=== PATIENT | female | born 1980 | race Caucasian/White ===

== ENCOUNTER 2017-06-04 11:48 | Inpatient (IN) | payer OTHER ==
--- NOTE | 2017-06-04 12:13 | CPEKG ---
Heart Rate: 115 RR Interval: 522 P-R Interval: 164 QRSD Interval: 94 QT Interval: 304 QTC Interval: 421 P [place]: 68 QRS [place]: -23 T Wave [place]: 129 EKG Severity - ABNORMAL ECG - EKG Impression: SINUS TACHYCARDIA EKG Impression: PROBABLE LVH WITH SECONDARY REPOL ABNRM Electronically Signed By: Padmini Hollis 04-Jun-2017 15:22:52
[2017-06-04 12:42] LABS: PLATELET COUNT 219 10^3/uL (150-400)
[2017-06-04] MEDS ORDERED: IOPAMIDOL (ISOVUE 370) 100 ML BTL IV ONE (12:56)
--- NOTE | 2017-06-04 13:07 | EDPHY ---
H & P Time Seen by Provider: 06/04/17 12:03 HPI/ROS: CHIEF COMPLAINT: Chest pain, shortness of breath HISTORY OF PRESENT ILLNESS: 37-year-old female with a history of antiphospholipid syndrome and prior pulmonary embolism presents with chest pain and shortness of breath. Just prior to arrival, she was in a meeting, when she developed sudden onset of central chest pain and dizziness. Associated with increasing shortness of breath. She has been short of breath for 4-6 weeks, thought secondary to severe anemia. Since she has been on anticoagulation, she has had fairly constant vaginal bleeding, which has led to severe anemia. She received an iron infusion yesterday. This month, the vaginal bleeding has been more severe than usual and continues today. She was seen at [facility] 1 week ago and placed on Provera. She has been on Eliquis for 6 weeks. Prior to this, she was on Coumadin, but she was switched over to Eliquis to see if Eliquis would cause less vaginal bleeding. REVIEW OF SYSTEMS: Constitutional: No fever, no chills Eyes: No visual changes ENT: No sore throat Gastrointestinal: No nausea, no vomiting, no abdominal pain Genitourinary: no dysuria Musculoskeletal: Bilateral leg swelling Skin: No rash Neurological: No headache, no numbness, no weakness Psychiatric: Feels anxious Past Medical/Surgical History: Antiphospholipid syndrome Pulmonary embolism Severe anemia Social History: Live In Housekeeper Nanny: Dr. Briana Casanova Smoking Status: Never smoked Physical Exam: General Appearance: Alert, pleasant Eyes: Pupils equal and round, conjunctival pallor ENT, Mouth: Mucous membranes moist Neck: Normal inspection Respiratory: Lungs are clear to auscultation Cardiovascular: Regular tachycardia Gastrointestinal: Abdomen is soft and nontender Neurological: A&O, nonfocal exam Skin: Warm and dry, no rash Extremities: Bilateral pedal edema Psychiatric: Mood and affect normal Constitutional: Initial Vital Signs Temperature (C) 36.7 C 06/04/17 11:52 Heart Rate 127 H 06/04/17 11:52 Respiratory Rate 28 H 06/04/17 11:52 Blood Pressure 201/119 H 06/04/17 11:52 O2 Sat (%) 91 L 06/04/17 11:52 O2 Delivery Mode Room Air Allergies/Adverse Reactions: No Known Allergies Allergy (Unverified 06/04/17 11:51) Home Medications: Medication Instructions Recorded Acetaminophen [Tylenol ES 500 mg 500 mg PO DAILY PRN 06/04/17 (*)] Albuterol [Proventil Inhaler HFA 1 - 2 puffs IH DAILY PRN 06/04/17 (*)] Apixaban [Eliquis] 5 mg PO BID 06/04/17 Levothyroxine [Synthroid 137 mcg 274 mcg PO DAILY06 06/04/17 (*)] Norgestimate-Ethinyl Estradiol 1 each PO DAILY 06/04/17 [Tri-Sprintec Tablet] Medical Decision Making - Diagnostics EKG Interpretation: EKG interpreted by me reveals sinus tachycardia, rate 115, nonspecific T-wave changes. Impression: Borderline EKG Imaging Results: CT pulmonary angiogram reveals no evidence of pulmonary embolism. Imaging: Discussed imaging studies w/ banquet server on call Radiologist, I viewed and interpreted images myself ED Course/Re-evaluation: This patient presents with chest pain and shortness of breath, concerning for acute pulmonary embolism, especially given tachycardia. CT pulmonary angiogram ordered. The CT pulmonary angiogram is normal, read by the radiologist. However, the patient has severe anemia, with hemoglobin of 8, and ongoing vaginal bleeding. I reviewed her past hemoglobins and she has never been this low. This is most likely the reason for the ongoing shortness of breath and tachycardia. I discussed the possibility of blood transfusion with the patient and her . No prior blood transfusion. She would like me to call Dr. Doe, her matrix supervisor. I spoke with the on-call physician for Dr. Doe, who agrees with blood transfusion. Risks and benefits of blood transfusion discussed with the patient. She agrees to transfusion. 1 U of packed red blood cells ordered. The hospitalist service was consulted for admission. Given ongoing chest pain, a troponin was ordered. EKG reveals no evidence of ischemia, though given the ongoing chest pain, serial troponins are indicated. Differential Diagnosis: Differential diagnosis includes though it is not limited to pneumonia, pneumothorax, pulmonary embolism, aortic dissection, pericarditis, acute coronary syndrome. - Data Points Laboratory Results: Laboratory Results 06/04/17 12:30 06/04/17 12:30 06/04/17 14:07 Patient ABO/Rh A POSITIVE Antibody Screen NEGATIVE Crossmatch IS Only See Detail Medications Given: Acetaminophen (Tylenol) 650 mg PO Q4HRS PRN PRN Reason: Pain, Mild/Fever, Can Take PO Stop: 07/03/18 16:48 Last Admin: 06/05/17 09:29 Dose: 650 mg Apixaban (Eliquis) 5 mg PO BID [facility] Stop: 12/01/17 20:59 Last Admin: 06/05/17 08:02 Dose: 5 mg Levothyroxine Sodium (Synthroid) 274 mcg PO DAILY06 [facility] Stop: 12/02/17 05:59 Last Admin: 06/05/17 08:02 Dose: 274 mcg Discontinued Medications Acetaminophen (Tylenol) 500 mg PO EDNOW ONE Stop: 06/04/17 16:17 Last Admin: 06/04/17 16:23 Dose: 500 mg Departure - Departure Disposition: [facility] Acute Clinical Impression: Severe anemia Chest pain Qualifiers: Chest pain type: precordial pain Qualified Code(s): R07.2 - Precordial pain Condition: Good
[2017-06-04] MEDS ORDERED: ACETAMINOPHEN 500 MG TAB PO ONE (16:16)
[2017-06-04] MEDS ORDERED: ACETAMINOPHEN 500 MG TAB PO PRN (16:48)
[2017-06-04] MEDS ORDERED: ONDANSETRON DISINTEGRATING 4 MG TAB PO PRN (16:49)
[2017-06-04] MEDS ORDERED: ONDANSETRON 4 MG/2 ML VIAL IVP PRN (16:49)
--- NOTE | 2017-06-04 17:54 | GHP ---
[f rep st] HISTORY AND PHYSICAL DATE OF ADMISSION: 06/04/2017 CHIEF COMPLAINT: Dizziness, menorrhagia. HISTORY OF PRESENT ILLNESS: This is a 37-year-old female with a history of pulmonary embolism a coup le years ago and diagnosed with antiphospholipid syndrome. She has been on Coumadin, and was recentl y switched over to Eliquis. For about a year she has been having menorrhagia due to her anticoagulat ion. She has been seeing Gynecology, and last month started on oral contraceptives. During the 3 we eks of active pills, she had decreased bleeding over normal; however, when she began the placebo, her bleeding began to decrease which was more brisk than usual. She was seen in the emergency departmen t about a week ago and was given Provera. She however continues with significant amounts of menorrha kinga. Today she has been feeling more short of breath with some lightheadedness and with some chest p ain/chest pressure. She is used to the shortness of breath, but the dizziness and chest pressure are new for her. Her hemoglobin has never been as low as 8. A couple weeks ago it was 12. The lowest it has been about 10. She does see Dr. Doe of [facility] and has been getting IV iron infusions; the last 1 was yesterday. REVIEW OF SYSTEMS: A 10-point review of systems was obtained, and other than stated, was negative. PAST MEDICAL HISTORY: 1. Antiphospholipid syndrome with pulmonary embolism. 2. Obstructive sleep apnea. 3. Asthma. 4. Hypothyroidism. MEDICATIONS: Reviewed. SOCIAL HISTORY: She is . No smoking or alcohol. FAMILY HISTORY: No history of blood clots. PHYSICAL EXAMINATION: VITAL SIGNS: Afebrile. Blood pressure is 146/105, heart rate 108, oxygen sat uration 96% in room air. GENERAL: The patient is well developed and in no apparent distress. HEENT: Anicteric sclerae. Extraocular movements intact. Moist mucous membranes. Pale conjunctivae. NEC K: Supple. No thyromegaly. LUNGS: Good effort. Clear to auscultation bilaterally. CARDIOVASCULA R: Regular rate and rhythm. No murmurs, rubs, or gallops. ABDOMEN: Positive bowel sounds. Soft, nontender, nondistended. No hepatosplenomegaly. EXTREMITIES: No clubbing, cyanosis, or edema. SKI N: Without rash. All intact. NEURO: Alert and oriented x3. Moving all 4 extremities equally. PS YCH: Normal mood and affect. LABORATORY DATA: White count 11, hemoglobin 11. Chemistry is normal. Troponin is 0.032. ASSESSMENT: A 37-year-old female, presenting with symptomatic anemia. 1. Symptomatic anemia. Hemoglobin is 8 and I suspect that she has had a 4 g drop in the last couple days. She does not appear to be tolerating this well, with some tachycardia, chest pain, and lighth eadedness. Therefore, will give her a transfusion. I am going to give her 2 units due to her contin ued bleeding and trying to build a little bit of reserve for her until the bleeding stops. 2. Menorrhagia. Will continue her oral contraceptives. 3. Obstructive sleep apnea. Continue CPAP. 4. History of pulmonary embolism. We will continue the Eliquis for now. 5. /[id number]/MODL
[2017-06-04] MEDS: ACETAMINOPHEN 325 MG TAB PO PRN (18:41)
[2017-06-04] MEDS: APIXABAN 5 MG TAB PO SCH (21:13)
[2017-06-05 05:10] LABS: PLATELET COUNT 179 10^3/uL (150-400)
[2017-06-05] MEDS: LEVOTHYROXINE 137 MCG TAB PO SCH (08:02)
[2017-06-05] MEDS: APIXABAN 5 MG TAB PO SCH ×2 (08:02→20:12)
[2017-06-05] MEDS: ACETAMINOPHEN 325 MG TAB PO PRN (09:29)
[2017-06-05] MEDS: Norgestimate-Ethinyl Estradiol [Tri-Sprintec Tablet] PO SCH (10:14)
[2017-06-05] MEDS ORDERED: DIAZEPAM 10 MG/2 ML SYR IVP PRN (10:47)
[2017-06-05] MEDS ORDERED: DIAZEPAM 5 MG TAB PO ONE (11:30)
--- NOTE | 2017-06-05 15:38 | HOSPPROG ---
Hospitalist Progress Note Assessment/Plan: 37y female with cp and bleeding. First encounter, chart reviewed. #Menorrhagia conts pt on control discussed IUD, waiting insurance coverage conts to bleed check labs in am #ABLA 2 unit PRBC given appears stable #CP bumped trop resolving no further complaints #Antiphospholipid syndrome cont eliquis #Severe back pain CT shows djd no acute process responded to valium likely spasm #Morbid obesity chronic #Hx PE on anticoagulation Dispo change to inpt status pt needs cont monitoring in hospital given cont bleeding recheck labs in am if stable likely DC home Subjective: C/O severe back pain. Still bleeding. Eager to go home. Objective: Vital Signs Temp Pulse Resp BP Pulse Ox 36.9 C 78 24 H 160/90 H 95 06/05/17 10:35 06/05/17 10:35 06/05/17 10:35 06/05/17 10:35 06/05/17 10:35 Laboratory Results 06/05/17 07:04 06/04/17 06/05/17 06/06/17 05:59 05:59 05:59 Intake Total 1800 Balance 1800 - Physical Exam Constitutional: appears nourished, obese, uncomfortable Eyes: PERRL, anicteric sclera, EOMI Ears, Nose, Mouth, Throat: moist mucous membranes, hearing normal, ears appear normal Cardiovascular: regular rate and rhythym, No JVD, No edema Respiratory: no respiratory distress, no rales or rhonchi, reduced air movement Gastrointestinal: normoactive bowel sounds, No tenderness, No ascites Skin: warm, normal color, No erythema Musculoskeletal: full muscle strength, normal joint ROM, no joint effusions Neurologic: AAOx3 Psychiatric: interacting appropriately, not anxious, not encephalopathic, poor judgement ICD10 Worksheet Patient Problems: Problems Problem Status Onset Chest pain Acute Severe anemia Acute
--- NOTE | 2017-06-05 16:06 | PDMN ---
Medical Necessity Medical necessity: Pt meets INPT criteria per [employer]/MD as of 06/05/17 and MCG M-35 Anemia, Iron Deficiency or Unspecified (ABLA req. 2 units pPRBC with ongoing menorrhagia, antiphospholipid syndrome on eliquis, chest pain, severe back pain ; hx PE).
--- NOTE | 2017-06-05 16:48 | ASMTCMCOM ---
CM Note CM Note Notes: Patient admitted for severe anemia secondary to menorrhagia. She had a blood transfusion today and will have labs checked again in the AM. Patient lives independently with , and I anticipate she will go home with him tomorrow. CM available if needs arise. Date Signed: 06/05/2017 04:47 PM Electronically Signed By:Cassie Fatima RN
[2017-06-06] MEDS: ACETAMINOPHEN 325 MG TAB PO PRN (00:14)
[2017-06-06 03:46] VITALS: O2SAT 93
[2017-06-06 07:08] VITALS: RESP 18
[2017-06-06] MEDS: APIXABAN 5 MG TAB PO SCH (08:08)
[2017-06-06] MEDS: LEVOTHYROXINE 137 MCG TAB PO SCH (08:08)
[2017-06-06] MEDS: Norgestimate-Ethinyl Estradiol [Tri-Sprintec Tablet] PO SCH (08:32)
[2017-06-06 16:03] VITALS: BP 146/58; PULSE 81; TEMP 98.3
--- NOTE | 2017-06-06 21:09 | GDS ---
[f rep st] DISCHARGE SUMMARY NEW AND ACUTE DIAGNOSES: 1. Menorrhagia with significant blood loss resulting in 2 units packed red blood cells. 2. Acute blood loss anemia, status post 2 units packed red blood cells. 3. Chest pain with an elevated troponin, felt to be noncardiac and resolving. 4. Antiphospholipid syndrome requiring long-term anticoagulation. 5. Severe back pain; possibly spasm and referred pain. 6. Morbid obesity. CHRONIC DIAGNOSES: A history of pulmonary emboli, on chronic anticoagulation. CONSULTATIONS: None. PROCEDURES: 1. CTA of the chest showed no evidence of pulmonary thromboembolic disease. Lungs were clear. Hepa tic steatosis noted. 2. Lumbar spine CT showing mild early degenerative disk and degenerative joint disease at L4-5 and L 5-S1. HOSPITAL COURSE: A 37-year-old female with a known antiphospholipid syndrome, for which she is on lo ng-term anticoagulation, presents with increased menorrhagia. She has constant small degree of catia rhagia, for which she is on control pills. Her bleeding had become more severe. She was given a dose of Provera, but the bleeding did not resolve. She presented with menorrhagia and a hemoglobi n of 8.1, with a baseline hemoglobin of approximately 12. Two units PRBCs were administered with a r ise to 9.6, which appeared to be stable. Her bleeding was slowly resolving, and she was feeling impr ish, though she continued to feel weak. She was not dizzy when standing. There was a troponin elevation that began at 0.032 and then samuel to 0.049 and then fell to 0.039. e had no further chest pain following the initial incident. The troponin elevation was felt secondar y to her severe anemia. Electrocardiogram done at that time showed only sinus tachycardia with a rep olarization abnormality. There were no acute findings. DISCHARGE MEDICATIONS: These will be the same as her admission medications without changes: 1. Eliquis 5 mg twice daily. 2. control pills 1 each daily. 3. Synthroid 274 mcg daily. 4. Albuterol inhaler 2 puffs/inhalations p.r.n. 5. Tylenol for pain. PLAN: The patient will see Dr. Briana Doe in 1-2 days for a recheck of her hemoglobin. If she begi ns to feel weak, short of breath, have further chest pain, or heavier bleeding, she will return to [facility] emergency department or contact Dr. Briana Doe, whichever is most expeditious. The patient is discharged to home in the company of her . She is feeling improved. Diet is u nrestricted. Activity unrestricted. TIME: This discharge required 45 minutes, greater than 50% to counseling program leader and coordinate care. I have d iscussed the matter with her and with the patient and all questions were answered. Copy requested to: Dr. Veronica [facility] /[id number]/MODL
== END 2017-06-06 17:12 | disposition home or self-care (01) | DRG 812 ==
LOC: F3E 17:21 → OBSVTOIN 06-05 15:40
PROVIDERS: ADMIT Internal Medicine; ATTEND Internal Medicine
PROC: 30233N1 Transfusion of Nonautologous Red Blood Cells into Peripheral Vein, Percutaneous Approach (ICD-10-PCS; principal; 2017-06-04)
DX: D62 Acute posthemorrhagic anemia (principal); R07.89 Other chest pain; N92.1 Excessive and frequent menstruation with irregular cycle; D68.61 Antiphospholipid syndrome; Z79.02 Long term (current) use of antithrombotics/antiplatelets; Z86.711 Personal history of pulmonary embolism; M62.830 Muscle spasm of back; E66.01 Morbid (severe) obesity due to excess calories; Z68.41 Body mass index [BMI] 40.0-44.9, adult; G47.33 Obstructive sleep apnea (adult) (pediatric); E03.9 Hypothyroidism, unspecified; J45.909 Unspecified asthma, uncomplicated
CPT/HCPCS: 82947-QW; G0378; P9016; Q9967